=== PATIENT | male | born 1965 | race Caucasian/White ===

== ENCOUNTER → 2019-08-19 20:17 | Outpatient (CLI) | payer SELFPAY ==
[2019-08-19 21:13] LABS: BASOPHILS 0.4 % (0-2); EOSINOPHILS 1.5 % (0-7); HEMATOCRIT 50.8 % (42.0-54.0); HEMOGLOBIN 17.6 g/dL (13.5-17.5); IMMATURE GRANULOCYTES 0.2 % (0-5); LYMPHOCYTES 21.3 % (15-50); MCH 31.9 pg (26.0-34.0); MCHC 34.6 g/dL (31.0-37.0); MEAN PLATELET VOLUME 11.4 fL (7.4-10.4); MONOCYTES 5.7 % (2-11); NEUTROPHILS 70.9 % (40-80); PLATELET COUNT 343 10x3/uL (130-400); RBC 5.52 10x6/uL (4.20-6.10); RDW 11.9 % (11.5-14.5); WBC 10.2 10x3/uL (4.8-10.8)
[2019-08-19 21:52] LABS: ALBUMIN 3.8 g/dL (3.4-5.0); ALKALINE PHOSPHATASE 189 U/L (46-116); ALT (SGPT) 26 U/L (10-68); BILIRUBIN - TOTAL 0.41 mg/dL (0.2-1.3); CALCIUM 9.6 mg/dL (8.5-10.1); CHLORIDE - SERUM 93 mmol/L (98-107); CHOL - HDL RATIO 6.4 ratio (2.3-4.9); CHOLESTEROL, TOTAL 288 mg/dL (0-200); CREATININE - SERUM 0.8 mg/dL (0.6-1.3); HDL CHOLESTEROL 45 mg/dL (32-96); LDL CHOLESTEROL 164 mg/dL (0-100); LDL-HDL RATIO 3.6 ratio (1.5-3.5); POTASSIUM - SERUM 4.9 mmol/L (3.5-5.1); PROTEIN - SERUM 7.5 g/dL (6.4-8.2); SODIUM 134 mmol/L (136-145); THYROID STIMULATING HORMONE 1.48 uIU/mL (0.36-3.74); TRIGLYCERIDE 397 mg/dL (30-200); UREA NITROGEN 10 mg/dL (7-18); eGFR NON AFRICAN AMERICAN > 90 mL/min (90-120)
[2019-08-19 21:58] LABS: % SATURATION 25 % (15-55); IRON 97 ug/dl (35-150); TOTAL IRON BIND CAPACITY 380 ug/dl (260-445); UNSAT IRON BIND CAPACITY 283 ug/dl (150-375)
[2019-08-19 22:21] LABS: CALC OSMOLALITY 288 mosm/kg (275-300); GLUCOSE 490 mg/dL (74-106)
== END | disposition home or self-care (01) ==
LOC: D.LABREF 20:17
PROVIDERS: ATTEND Emergency Medicine
DX: E11.9 Type 2 diabetes mellitus without complications (principal); N40.0 Benign prostatic hyperplasia without lower urinary tract symptoms; I10 Essential (primary) hypertension; E78.5 Hyperlipidemia, unspecified